=== PATIENT | male | born 1985 | race Caucasian/White ===

== ENCOUNTER 2017-03-25 08:37 | Emergency (ER) | payer OTHER ==
--- NOTE | 2017-03-25 08:55 | ED ---
Lower Extremity - HPI Summary HPI Summary: 32M presents with right ankle pain s/p falling in hole and twisting it yesterday. He has not been able to ambulate today due to pain. He denies any previous injury to the ankle. He has not taken anything for pain. He admits to edema of his ankle. He denies any numbness or tingling. - History of Current Complaint Chief Complaint: EDExtremityLower Stated Complaint: RIGHT ANKLE PAIN Time Seen by Provider: 03/25/17 08:50 Pain Intensity: 4 PMH/Surg Hx/FS Hx/Imm Hx Endocrine/Hematology History: Denies: Hx Anticoagulant Therapy Cardiovascular History: Denies: Hx Hypertension Infectious Disease History: No Infectious Disease History: Denies: Traveled Outside the [place] in Last 30 Days - Family History Known Family History: Positive: Hypertension - Social History Alcohol Use: Occasionally Substance Use Type: Reports: None Smoking Status (MU): Never Smoked Tobacco Review of Systems Negative: Fever Negative: Chest Pain Negative: Shortness Of Breath Positive: Myalgia - right ankle pain All Other Systems Reviewed And Are Negative: Yes Physical Exam Triage Information Reviewed: Yes Vital Signs On Initial Exam: Initial Vitals Temp Pulse Resp BP Pulse Ox 98.5 F 72 18 124/70 100 03/25/17 08:40 03/25/17 08:40 03/25/17 08:40 03/25/17 08:40 03/25/17 08:40 Vital Signs Reviewed: Yes Appearance: Positive: Well-Appearing Skin: Positive: Warm, Dry Head/Face: Positive: Normal Head/Face Inspection Eyes: Positive: Normal, Conjunctiva Clear Respiratory/Lung Sounds: Positive: Clear to Auscultation, Breath Sounds Present Cardiovascular: Positive: Normal, RRR Musculoskeletal: Positive: Limited @ - ankle due to pain, Other - good pulses, capillary refill < 2 secs, tenderness and edema over lateral malleolus of right ankle, nontender foot Diagnostics - Vital Signs Vital Signs Temp Pulse Resp BP Pulse Ox 03/25/17 08:43 98.5 F 79 18 124/70 100 03/25/17 08:40 98.5 F 72 18 124/70 100 - Laboratory Lab Statement: Any lab studies that have been ordered have been reviewed, and results considered in the medical decision making process. - Radiology ankle Xray Interpretation: Positive (See Comments) - IMPRESSION: JOINT EFFUSION. NO ACUTE OSSEOUS INJURY. IF SYMPTOMS PERSIST, RECOMMEND REPEAT IMAGING. Radiology Interpretation Completed By: Radiologist Lower Extremity Course/Dx - Course Course Of Treatment: 32M presents with right ankle pain yesterday s/p twisting ankle in whole. pain greatest over lateral malleolus. able to ambulate yesterday but unable to ambulate today due to swelling.. has not taken anything. edema present on exam. xray shows no fracture. will treat as sprain with RICE. patient understands and agrees with plan - Diagnoses Differential Diagnosis/HQI/PQRI: Positive: Fracture (Closed), Sprain, Strain Provider Diagnoses: Right ankle sprain Discharge - Discharge Plan Condition: Good Disposition: HOME Patient Education Materials: Ankle Sprain (ED) Referrals: Armando Bear MD [Primary Care Provider] - Additional Instructions: Stay off ankle as possible as possible Ice, elevate, keep in CHEMA Ibuprofen every 6 hours for pain Follow up with primary if no improvement after 7 days Return to ED if develop any numbness or tingling or any new or worsening symptoms
--- NOTE | 2017-03-25 09:35 | RAD ---
HISTORY: Right ankle injury COMPARISONS: None VIEWS: 3, Frontal, lateral, and oblique views of the right ankle FINDINGS: BONE DENSITY: Normal. BONES: There is no displaced fracture. JOINTS: There is no arthropathy. There is joint effusion ALIGNMENT: There is no dislocation. SOFT TISSUES: Unremarkable. OTHER FINDINGS: None. IMPRESSION: JOINT EFFUSION. NO ACUTE OSSEOUS INJURY. IF SYMPTOMS PERSIST, RECOMMEND REPEAT IMAGING.
[2017-03-25 10:19] VITALS: BP 112/70
== END 2017-03-25 10:18 | disposition home or self-care (01) ==
LOC: ED 08:37
DX: M25.571 Pain in right ankle and joints of right foot (principal); S93.401A Sprain of unspecified ligament of right ankle, initial encounter; W17.2XXA Fall into hole, initial encounter; Y93.9 Activity, unspecified; Y92.9 Unspecified place or not applicable; Y99.9 Unspecified external cause status
CPT/HCPCS: 99281